=== PATIENT | male | born 1995 ===

== ENCOUNTER 2020-01-21 13:42 | Emergency (ER) | payer SELFPAY ==
[2020-01-21] MEDS ORDERED: traMADol 50 MG TAB PO ONE (16:35)
[2020-01-21] MEDS ORDERED: ACETAMINOPHEN 325 MG TAB PO ONE (16:35)
--- NOTE | 2020-01-21 16:39 | Emergency Department Report ---
ED ENT HPI - General Chief complaint: Dental/Oral Stated complaint: TOOTHACHE Time Seen by Provider: 01/21/20 16:03 Source: patient Mode of arrival: Ambulatory Limitations: No Limitations - History of Present Illness Initial comments: Patient is a 24-year-old male presents emergency room with complaints of dental pain that began a week ago. He states that it became significantly worse today and is causing pain to radiate to his head and into his ear. He states that he has a hole present in his tooth that he has had for a couple of years. He state s it has been probably 10 years since he has seen a dentist. Patient states that he has been taking BC powder without much relief. No fever, no nausea, no vomiting, no diarrhea, no facial swelling. Patient is tolerating p.o. intake and his secretions. Past medical history of HIV and is on his antivirals and states that he is undetectable and he sees an infectious disease doctor. No allergies to medications. - Related Data Allergies Allergy/AdvReac Type Severity Reaction Status Date / Time No Known Allergies Allergy Unverified 01/21/20 13:45 ED Dental HPI - General Chief complaint: Dental/Oral Stated complaint: TOOTHACHE Time Seen by Provider: 01/21/20 16:03 Source: patient Mode of arrival: Ambulatory Limitations: No Limitations - Related Data Allergies Allergy/AdvReac Type Severity Reaction Status Date / Time No Known Allergies Allergy Unverified 01/21/20 13:45 ED Review of Systems ROS: Stated complaint: TOOTHACHE Other details as noted in HPI Comment: All other systems reviewed and negative ED Past Medical Hx - Past Medical History Previous Medical History?: Yes Additional medical history: HIV - Surgical History Past Surgical History?: No - Social History Smoking Status: Current Some Day Smoker ED Physical Exam - General Limitations: No Limitations General appearance: alert, other (pt is tearful secondary to pain) - Head Head exam: Present: atraumatic, normocephalic - Eye Eye exam: Present: normal appearance - ENT ENT exam: Present: normal orophraynx, mucous membranes moist, other (there are two holes present to the right lower back molar, no edema or induration of the gumline, uvula is midline, no uvular edema or deviation, no tongue elevation, no muffled voice) - Neurological Exam Neurological exam: Present: alert, oriented X3 - Psychiatric Psychiatric exam: Present: normal affect, normal mood - Skin Skin exam: Present: warm, dry, intact ED Course Vital Signs 01/21/20 01/21/20 13:46 17:40 Temperature 98.3 F Pulse Rate 85 72 Respiratory 16 16 Rate Blood Pressure 152/108 Blood Pressure 138/82 [Right] O2 Sat by Pulse 98 100 Oximetry ED Medical Decision Making - Medical Decision Making Patient is a 24-year-old male presents emergency room with complaints of dental pain that began a week ago. He states that it became significantly worse today and is causing pain to radiate to his head and into his ear. He states that he has a hole present in his tooth that he has had for a couple of years. He states it has been probably 10 years since he has seen a dentist. Patient states that he has been taking BC powder without much relief. No fever, no nausea, no vomiting, no diarrhea, no facial swelling. Patient is tolerating p.o. intake and his secretions. Past medical history of HIV and is on his antivirals and states that he is undetectable and he sees an infectious disease doctor. No allergies to medications. initial triage vitals with elevated BP, improved upon repeat. on exam pt is tearful secondary to dental pain. on exam: there are two holes present to the right lower back molar, no edema or induration of the gumline, uvula is midline, no uvular edema or deviation, no tongue elevation, no muffled voice. No clinical signs of infected dental carry, dental abscess, Ludwigs. Patient given pain medication while in the ED as he did not drive to help with symptom control. advised pt May alternate Tylenol and then ibuprofen every 6-8 hours as needed for pain. May gargle with warm salt water. May use a dental puddy [id number]. Please follow-up with a dentist, it is very important that you follow-up with a dentist. Return to emergency room for any new or worsening symptoms. - Differential Diagnosis dental caries, cracked tooth, dental abscess, gingivitis, dentalgia Critical care attestation.: If time is entered above; I have spent that time in minutes in the direct care of this critically ill patient, excluding procedure time. ED Disposition Clinical Impression: Cracked tooth, Dental caries, Dentalgia Disposition: TO HOME OR SELFCARE Is pt being admited?: No Does the pt Need Aspirin: No Condition: Stable Instructions: Dental Caries (ED), Toothache (ED) Additional Instructions: May alternate Tylenol and then ibuprofen every 6-8 hours as needed for pain. May gargle with warm salt water. May use a dental puddy [id number]. Please follow-up with a dentist, it is very important that you follow-up with a dentist. Return to emergency room for any new or worsening symptoms. Referrals: [facility] [Outside] - 2-3 Days [facility] [Outside] - 2-3 Days Time of Disposition: 16:38 Print Language: MOSOT[place]
[2020-01-21 17:41] VITALS: BP 138/82
== END 2020-01-21 17:41 | disposition home or self-care (01) ==
LOC: ED 13:42
DX: K02.9 Dental caries, unspecified (principal); K03.81 Cracked tooth
CPT/HCPCS: 99282